=== PATIENT | male | born 1960 | race Caucasian/White ===

== ENCOUNTER 2020-12-31 11:39 | Inpatient (IN) ==
[2020-12-31] MEDS ORDERED: Vancomycin 1,500 MG/265 ML IV.SOLN IVPB ONE (12:21)
[2020-12-31] MEDS ORDERED: CeFAZolin Syr 2,000MG/20 ML 2,000 MG/20 ML SYRINGE IVPB ONE (12:21)
[2020-12-31] MEDS ORDERED: Ringers Solution, Lactated 1,000 ML IVC SCH ×2 (12:30→13:00)
[2020-12-31] MEDS ORDERED: *HR* OxyCODONE Immed Rel 5 MG TABLET PO PRN ×2 (12:46→17:44)
[2020-12-31] MEDS ORDERED: Ondansetron 4 MG/2 ML VIAL IVP PRN ×2 (12:46→17:44)
[2020-12-31] MEDS ORDERED: *HR* HYDROmorphone (PF) 1 MG/ML SYRINGE IVP PRN (12:46)
[2020-12-31] MEDS ORDERED: *HR* Midazolam HCl 2 MG/2 ML VIAL ONE (13:09)
[2020-12-31] MEDS ORDERED: *HR* FentaNYL (PF) 100 MCG/2 ML VIAL ONE ×2 (13:09→13:24)
[2020-12-31] MEDS ORDERED: *HR* Rocuronium Bromide 50 MG/5 ML VIAL ONE ×2 (13:09→15:23)
[2020-12-31] MEDS ORDERED: Dexamethasone 4 MG/ML VIAL ONE (13:09)
[2020-12-31] MEDS ORDERED: Ondansetron 4 MG/2 ML VIAL ONE (13:09)
[2020-12-31] MEDS ORDERED: Lidocaine -MPF 2% 2 ML VIAL ONE ×2 (13:09→13:15)
[2020-12-31] MEDS ORDERED: *HR* Succinylcholine 200 MG/10 ML VIAL IVP ONE (13:09)
[2020-12-31] MEDS ORDERED: *HR* Propofol 200 MG/20 ML VIAL IVP ONE (13:10)
[2020-12-31] MEDS ORDERED: Vancomycin 1,000 MG, Sodium Chloride IRRigation 1,000 ML IR ONE (13:15)
[2020-12-31] MEDS ORDERED: *HR* Remifentanil 2 MG VIAL IVP ONE (13:15)
[2020-12-31] MEDS ORDERED: EPHEDrine 50 MG/ML VIAL ONE (13:27)
[2020-12-31] MEDS ORDERED: *HR* Vasopressin 20 UNIT/ML VIAL ONE (13:31)
[2020-12-31 14:24] LABS: ABG Base Excess -1 mEq/L (-2 to 3); ABG Chloride 112 mEq/L (98-107); ABG Glucose 85 mg/dL (60-95); ABG HCO3 24 mEq/L (21-27); ABG Ionized Calcium 1.25 mmol/L (1.15-1.35); ABG Oxygen Saturation 100 % (95-98); ABG PCO2 41 mmHg (35-45); ABG PH 7.38 pH Units (7.32-7.45); ABG PO2 219 mmHg (85-104); ABG TCO2 25 mEq/L (20-26)
[2020-12-31] MEDS ORDERED: *HR* Heparin 5,000 UNIT/ML VIAL ONE (15:06)
[2020-12-31] MEDS ORDERED: Neostigmine Methylsulfate 3 MG/3 ML SYRINGE ONE (16:15)
[2020-12-31] MEDS ORDERED: *HR* HYDROMORPHONE 2 MG/ML VIAL ONE (16:30)
[2020-12-31] MEDS ORDERED: Heparin 1,000 UNITS/500 mL 1,000 ML ONE (17:02)
[2020-12-31] MEDS ORDERED: Acetaminophen 325 MG TABLET PO PRN (17:44)
[2020-12-31] MEDS ORDERED: Naloxone 0.4 MG/ML INJ IVP PRN (17:44)
[2020-12-31] MEDS ORDERED: *HR* Labetalol 20 MG/4 ML SYRINGE IVP PRN (17:44)
[2020-12-31] MEDS ORDERED: *HR* HYDROcodone/Acet 5/325 mg TABLET PO PRN (17:44)
[2020-12-31] MEDS ORDERED: 0.9 % Sodium Chloride 1,000 ML IVC SCH (17:45)
[2020-12-31] MEDS: *HR* Metoprolol 5 MG/5 ML VIAL IVP SCH ×2 (18:38→18:43)
[2020-12-31] MEDS: Nicotine 21 MG PATCH.TD24 TD SCH (18:38)
[2020-12-31] MEDS: CeFAZolin 2 GM/120 ML BAG IVPB SCH (20:39)
[2021-01-01] MEDS: *HR* Metoprolol 5 MG/5 ML VIAL IVP SCH ×2 (00:01→05:26)
[2021-01-01] MEDS ORDERED: Vancomycin 1,500 MG/265 ML IV.SOLN IVPB ONE (02:00)
[2021-01-01 04:20] LABS: Basophils % 0.1 %; Hemoglobin 13.5 g/dL (12.9-16.9); Immature Granulocytes % 0.4 % (0-4); Lymphocytes % 14.4 %; Mean Corpuscular HGB Conc 34.6 g/dL (31.6-35.5); Mean Corpuscular Hemoglobin 35.3 pg (28.0-33.3); Mean Corpuscular Volume 102.1 fL (83.0-100.0); Mean Platelet Volume 9.4 fL (9.4-12.4); Monocytes # 0.7 K/mcL (0.0-1.3); Monocytes % 5.3 %; Neutrophils # 11.2 K/mcL (1.6-8.9); Platelet Count 164 K/mcL (140-400); Red Blood Count 3.82 M/mcL (4.19-5.50); Segmented Neutrophils % 79.8 %
[2021-01-01 04:36] LABS: BUN/Creatinine Ratio 16 (6-26); Blood Urea Nitrogen 13 mg/dL (8-23); Calcium 8.2 mg/dL (8.6-10.3); Carbon Dioxide 25 mEq/L (23-29); Chloride 109 mEq/L (98-107); Glucose 141 mg/dL (70-105); Osmolality,Calculated 288 (280-300); Sodium 138 mEq/L (136-145); eGFR For African Americans > 60 (> 60); eGFR For Non-African Americans > 60 (> 60)
[2021-01-01] MEDS: CeFAZolin 2 GM/120 ML BAG IVPB SCH (05:31)
[2021-01-01] MEDS ORDERED: *HR* Heparin 5,000 UNIT/ML VIAL SQ SCH ×2 (06:00)
[2021-01-01 07:28] VITALS: BP 138/95
[2021-01-01] MEDS ORDERED: lisinopriL 5 MG TABLET PO SCH (09:00)
[2021-01-01] MEDS ORDERED: Aspirin Enteric Coated 81 MG Tablet PO SCH (09:00)
[2021-01-01] MEDS: Nicotine 21 MG PATCH.TD24 TD SCH (09:04)
== END 2021-01-01 11:32 | disposition home or self-care (01) | DRG 254 ==
LOC: SAMDAY 11:39 → 2NNU 13:08
PROVIDERS: ADMIT Surgery; ATTEND Surgery
PROC: VASFFBG (ICD-10-PCS; 2020-12-31 13:15)